=== PATIENT | female | born 1965 | race Caucasian/White ===

== ENCOUNTER 2019-02-26 05:24 | Inpatient (IN) ==
[2019-02-25 10:26] LABS: Basophils % 0.4 % (0.0-0.8); Eosinophils # 0.1 10*3/uL (0.0-0.87); Eosinophils % 1.9 % (0.00-10.9); Hematocrit 42.2 VOL% (35.7-47.0); Hemoglobin 13.7 GM/DL (12.0-16.0); Immature Granulocytes % 0.4 %; Immature Granulocytes Absolute 0.03 #; Lymphocytes # 1.8 10*3/uL (1.4-4.0); Lymphocytes % 26.6 % (21.3-54.2); Mean Corpuscular HGB Conc 32.5 GM/DL (32-36); Mean Corpuscular Volume 87.6 FL (87-102); Mean Platelet Volume 10.9 FL (9.6-12.0); Monocytes % 8.5 % (1.7-12.7); Neutrophils % 62.2 % (38.7-73.9); Platelet Count 196 T/CUMM (130-400); Red Blood Count 4.82 MC/CUMM (3.8-5.5); Red Cell Distribution Width 12.6 % (9.3-17.3); White Blood Count 6.7 T/CUMM (4-12)
[2019-02-25 10:37] LABS: INR 0.9; Partial Thromboplastin Time 27.5 SECS (0-40)
[2019-02-25 10:42] LABS: Apearance,Urine CLEAR (Clear); Bilirubin,Urine Negative (Negative); Blood, Urine Large mg/dL (Negative); Glucose,Urine (UA) 150 mg/dL (Negative); Ketones,Urine Negative (Negative); Nitrite,Urine Negative (Negative); Protein,Urine 30 MG/DL; RBC,Urine 11 /HPF (0-4); Squamous Epithelial Cell,Urine Occasional /HPF (0-10); Urine Color Yellow (Yellow); Urine Specific Gravity 1.014 (1.001-1.035); Urine Urobilinogen < 2.0 EU/DL (0.2-1.0); WBC,Urine 2 /HPF (0-6)
[2019-02-25 10:54] LABS: Calcium 9.6 MG/DL (8.5-10.1); Osmolality,Calculated 285.8 MOS/KG (273-304)
[~2019-02-26 05:24] MED LIST: PAPAVERINE 60 MG/2 ML VIAL ONE; SODIUM CHLORIDE 0.9% 1,000 ML IV PRN; TISSUE ADHESIVE 1 EACH APPLICATOR TOP ONE; VANCOMYCIN 1,000 MG VIAL ONE
[2019-02-26] MEDS ORDERED: LIDOCAINE 1% 5 ML VIAL ONE (06:00)
[2019-02-26] MEDS ORDERED: LORazepam 1 MG TABLET PO ONE (06:00)
[2019-02-26] MEDS ORDERED: SUFentanil 250 MCG/5 ML AMP ONE (06:00)
[2019-02-26] MEDS ORDERED: VECURONIUM 10 MG VIAL IV ONE (06:01)
[2019-02-26] MEDS ORDERED: MIDAZOLAM 10 MG/2 ML VIAL ONE (06:01)
[2019-02-26] MEDS ORDERED: ETOMIDATE 40 MG/20 ML VIAL IV ONE (06:01)
[2019-02-26] MEDS ORDERED: LORazepam 1 MG TABLET ONE (06:10)
[2019-02-26] MEDS ORDERED: SODIUM CHLORIDE 0.9% 1,000 ML IV SCH (06:30)
[2019-02-26] MEDS ORDERED: CEFUROXIME 1,500 MG VIAL ONE (07:07)
[2019-02-26 07:50] LABS: ABG Base Excess -1.7 MMOL/L (-2.5-2.5); ABG Oxygen Saturation 99.9 % (95-100); ABG PCO2 41.1 MM HG (35-48); ABG PH 7.366 (7.35-7.45); ABG TCO2 20.9 MMOL/L (23-27); Glucose Heart Surgery 283 MG/DL (74-106); Hemoglobin Heart Surgery 12.3 G/DL (12.0-16.0); Ionized Calcium Arterial 1.18 MMOL/L (1.21-1.46); PCO2 Patient Temp Arterial 41.1 MMHG; PH Patient Temp Arterial 7.366; Patient Temperature 37 CELCIUS; Potassium Heart/CVR 4.4 MMOL/L (3.5-5.1); Sodium Heart/CVR 135 MMOL/L (135-145)
[2019-02-26 07:53] LABS: Apearance,Urine CLEAR (Clear); Bilirubin,Urine Negative (Negative); Blood, Urine Moderate mg/dL (Negative); Glucose,Urine (UA) 50 mg/dL (Negative); Ketones,Urine Negative (Negative); Nitrite,Urine Negative (Negative); Protein,Urine Negative; RBC,Urine 3 /HPF (0-4); Urine Color Straw (Yellow); Urine Specific Gravity 1.006 (1.001-1.035); Urine Urobilinogen < 2.0 EU/DL (0.2-1.0); WBC,Urine <1 /HPF (0-6)
[2019-02-26] MEDS ORDERED: HEPARIN/NACL 0.9% 2 UNITS/ML 500 ML IV ONE (09:18)
[2019-02-26] MEDS ORDERED: PHENYLEPHRINE DRIP 20 MG/250 ML PREMIX IV ONE (09:18)
[2019-02-26] MEDS ORDERED: NITROGLYCERIN DRIP 50 MG/250 ML BOTTLE IV ONE (09:18)
[2019-02-26] MEDS ORDERED: CALCIUM CHLORIDE 1,000 MG/10 ML SYRINGE IV ONE (09:22)
[2019-02-26] MEDS ORDERED: SODIUM BICARBONATE 50 MEQ/50 ML VIAL IV ONE ×2 (09:22→10:58)
[2019-02-26] MEDS ORDERED: PHENYLEPHRINE DRIP 40 MG/250 ML PREMIX IV ONE (09:22)
[2019-02-26] MEDS ORDERED: POTASSIUM CHLORIDE RIDER 100 ML IV ONE (09:22)
[2019-02-26] MEDS ORDERED: ALBUMIN 5% 12.5 GM/250 ML VIAL IV ONE (09:23)
[2019-02-26 09:32] LABS: Hematocrit Heart Surgery 26.4 PERCENT (37-47); Hemoglobin Heart Surgery 8.5 G/DL (12.0-16.0); PCO2 Patient Temp Venous 36.4 MM HG; PH Patient Temp Venous 7.421; PO2 Patient Temp Venous 36.4 MM HG; Potassium Heart/CVR 5.7 MMOL/L (3.5-5.1); VBG Base Excess -0.4 MEQ/L (0-4); VBG HCO3 23.8 MEQ/L (24-28); VBG Oxygen Saturation 76.8 %; VBG PCO2 40.1 MMHG (41-51); VBG PH 7.392; VBG PO2 41.8 MMHG (17-40)
[2019-02-26 10:03] LABS: Hemoglobin Heart Surgery 9.7 G/DL (12.0-16.0); PCO2 Patient Temp Venous 33.9 MM HG; PH Patient Temp Venous 7.452; PO2 Patient Temp Venous 37.7 MM HG; Potassium Heart/CVR 6.6 MMOL/L (3.5-5.1); VBG Base Excess -0.7 MEQ/L (0-4); VBG HCO3 23.9 MEQ/L (24-28); VBG Oxygen Saturation 81.4 %; VBG PCO2 38.7 MMHG (41-51); VBG PH 7.408; VBG PO2 46.5 MMHG (17-40)
[2019-02-26] MEDS ORDERED: INSULIN REGULAR 100 UNIT/ML ONE (10:22)
[2019-02-26 10:48] LABS: ABG Base Excess -4.5 MMOL/L (-2.5-2.5); ABG HCO3 20.7 MMOL/L (20-26); ABG Oxygen Saturation 98.1 % (95-100); ABG PCO2 44.9 MM HG (35-48); ABG PH 7.297 (7.35-7.45); ABG TCO2 20.1 MMOL/L (23-27); Glucose Heart Surgery 367 MG/DL (74-106); Hematocrit Heart Surgery 31.8 PERCENT (37-47); Hemoglobin Heart Surgery 10.3 G/DL (12.0-16.0); PCO2 Patient Temp Arterial 44.9 MMHG; PH Patient Temp Arterial 7.297; Patient Temperature 37 CELCIUS; Potassium Heart/CVR 4.5 MMOL/L (3.5-5.1); Sodium Heart/CVR 131 MMOL/L (135-145)
[2019-02-26] MEDS ORDERED: MANNITOL 100 GM/500 ML BAG IV ONE (10:57)
[2019-02-26] MEDS ORDERED: DEXTROSE 5% KCL 20 MEQ 20 MEQ/1,000 ML BAG IV ONE (10:58)
[2019-02-26] MEDS ORDERED: MAGNESIUM SULFATE 5 GM/10 ML VIAL IV ONE (10:58)
[2019-02-26] MEDS ORDERED: ALBUMIN 25% 25 GM/100 ML VIAL IV ONE (10:58)
[2019-02-26] MEDS ORDERED: PROTAMINE SULFATE 250 MG/25 ML VIAL IV ONE (10:58)
[2019-02-26] MEDS ORDERED: FUROSEMIDE 20 MG/2 ML VIAL ONE (10:59)
[2019-02-26] MEDS ORDERED: methylPREDNISolone SOD SUC 1,000 MG/8 ML VIAL ONE (10:59)
[2019-02-26] MEDS ORDERED: HEPARIN 10,000 UNIT/10 ML VIAL ONE (10:59)
[2019-02-26] MEDS ORDERED: ACETAMINOPHEN 650 MG SUPP RECTAL PRN (11:34)
[2019-02-26] MEDS ORDERED: MIDAZOLAM 2 MG/2 ML VIAL IV PRN (11:34)
[2019-02-26] MEDS ORDERED: POTASSIUM CHLORIDE RIDER 10 MEQ in PREMIX 1 EACH IV PRN (11:34)
[2019-02-26] MEDS ORDERED: MORPHINE 10 MG/1 ML VIAL IV PRN (11:34)
[2019-02-26] MEDS ORDERED: CALCIUM CHLORIDE 1,000 MG/10 ML SYRINGE IV PRN (11:34)
[2019-02-26] MEDS ORDERED: DEXTROSE 50% 25 GM/50 ML SYRINGE IV PRN ×2 (11:34)
[2019-02-26] MEDS ORDERED: MAGNESIUM SULF RIDER 2 GM in PREMIX 1 EACH IV PRN (11:34)
[2019-02-26] MEDS ORDERED: ALBUMIN 5% 12.5 GM in PREMIX 1 EACH IV PRN (11:34)
[2019-02-26] MEDS ORDERED: CHLORHEXIDINE 4% SOLN 118 ML BOTTLE TOP PRN (11:34)
[2019-02-26] MEDS ORDERED: MAGNESIUM SULF RIDER 4 GM in PREMIX 1 EACH IV PRN (11:34)
[2019-02-26] MEDS: SODIUM CHLORIDE 0.45% 1,000 ML IV SCH ×2 (11:45→12:19)
[2019-02-26 12:08] LABS: ABG Base Excess -3.2 MMOL/L (-2.5-2.5); ABG HCO3 21.7 MMOL/L (20-26); ABG Oxygen Saturation 96.6 % (95-100); ABG PCO2 43.5 MM HG (35-48); ABG PH 7.327 (7.35-7.45); ABG PO2 90.3 MM HG (80-95); ABG TCO2 20.5 MMOL/L (23-27); Glucose Heart Surgery 274 MG/DL (74-106); Hematocrit Heart Surgery 34.9 PERCENT (37-47); Hemoglobin Heart Surgery 11.3 G/DL (12.0-16.0); Potassium Heart/CVR 3.8 MMOL/L (3.5-5.1)
[2019-02-26 12:12] LABS: Basophils % 0.3 % (0.0-0.8); Eosinophils % 0.4 % (0.00-10.9); Hematocrit 33.7 VOL% (35.7-47.0); Hemoglobin 11.1 GM/DL (12.0-16.0); Immature Granulocytes % 0.7 %; Immature Granulocytes Absolute 0.05 #; Lymphocytes # 0.8 10*3/uL (1.4-4.0); Lymphocytes % 12.1 % (21.3-54.2); Mean Corpuscular HGB Conc 32.9 GM/DL (32-36); Mean Corpuscular Volume 87.3 FL (87-102); Mean Platelet Volume 10.9 FL (9.6-12.0); Monocytes % 4.7 % (1.7-12.7); Neutrophils % 81.8 % (38.7-73.9); Platelet Count 163 T/CUMM (130-400); Red Blood Count 3.86 MC/CUMM (3.8-5.5); Red Cell Distribution Width 12.7 % (9.3-17.3)
[2019-02-26 12:21] LABS: Partial Thromboplastin Time 26.4 SECS (0-40)
[2019-02-26] MEDS: POTASSIUM CHLORIDE RIDER 20 MEQ in PREMIX 1 EACH IV PRN ×3 (12:23→18:53)
[2019-02-26 12:41] LABS: Blood Urea Nitrogen 16 MG/DL (7-18); Glucose 253 MG/DL (74-106); Osmolality,Calculated 286.5 MOS/KG (273-304)
[2019-02-26] MEDS: INSULIN REGULAR DRIP 100 ML IV SCH ×2 (12:42→19:09)
[2019-02-26] MEDS: SODIUM CHLORIDE 0.9% 250 ML IV PRN ×2 (12:44→13:00)
[2019-02-26 13:00] LABS: Calcium 8.5 MG/DL (8.5-10.1)
[2019-02-26] MEDS ORDERED: AMINOCAPROIC ACID 5,000 MG/20 ML VIAL ONE (13:02)
[2019-02-26] MEDS: INSULIN REGULAR 100 UNIT/ML IV PRN ×2 (13:58→17:07)
[2019-02-26] MEDS ORDERED: ASPIRIN 300 MG SUPP RECTAL ONE (14:35)
[2019-02-26 16:59] LABS: ABG HCO3 21.1 MMOL/L (20-26); ABG PCO2 39.4 MM HG (35-48); ABG PH 7.343 (7.35-7.45); ABG TCO2 18.9 MMOL/L (23-27); Glucose Heart Surgery 191 MG/DL (74-106); Hematocrit Heart Surgery 38.7 PERCENT (37-47); Hemoglobin Heart Surgery 12.6 G/DL (12.0-16.0); Potassium Heart/CVR 3.4 MMOL/L (3.5-5.1)
[2019-02-26 18:54] LABS: ABG Base Excess -4.3 MMOL/L (-2.5-2.5); ABG HCO3 20.9 MMOL/L (20-26); ABG Oxygen Saturation 99.8 % (95-100); ABG PCO2 27.6 MM HG (35-48); ABG PH 7.435 (7.35-7.45); ABG TCO2 16.1 MMOL/L (23-27); Glucose Heart Surgery 168 MG/DL (74-106); Hematocrit Heart Surgery 41.2 PERCENT (37-47); Hemoglobin Heart Surgery 13.4 G/DL (12.0-16.0); Potassium Heart/CVR 4.6 MMOL/L (3.5-5.1)
[2019-02-26] MEDS: MORPHINE 4 MG/1 ML VIAL IV PRN (18:54)
[2019-02-26] MEDS: ONDANSETRON 4 MG/2 ML VIAL IV PRN (19:24)
[2019-02-26] MEDS: CEFUROXIME INJ 1,500 MG in SYRINGE 1 EACH IV SCH (19:59)
[2019-02-26] MEDS: CHLORHEXIDINE 0.12% ORAL RINSE 60 ML BOTTLE SWISH/SPIT SCH (20:04)
[2019-02-27] MEDS: MORPHINE 4 MG/1 ML VIAL IV PRN ×4 (00:06→14:36)
[2019-02-27] MEDS: SODIUM CHLORIDE 0.45% 1,000 ML IV SCH (01:00)
[2019-02-27 04:31] LABS: Basophils % 0.1 % (0.0-0.8); Hemoglobin 12.5 GM/DL (12.0-16.0); Immature Granulocytes % 0.5 %; Immature Granulocytes Absolute 0.08 #; Lymphocytes # 0.9 10*3/uL (1.4-4.0); Lymphocytes % 5.3 % (21.3-54.2); Mean Corpuscular HGB Conc 32.9 GM/DL (32-36); Mean Corpuscular Volume 87.8 FL (87-102); Mean Platelet Volume 10.9 FL (9.6-12.0); Monocytes % 4.4 % (1.7-12.7); Neutrophils % 89.7 % (38.7-73.9); Platelet Count 219 T/CUMM (130-400); Red Blood Count 4.33 MC/CUMM (3.8-5.5); White Blood Count 15.9 T/CUMM (4-12)
[2019-02-27 04:52] LABS: Calcium 8.4 MG/DL (8.5-10.1); Osmolality,Calculated 279.8 MOS/KG (273-304)
[2019-02-27] MEDS: CEFUROXIME INJ 1,500 MG in SYRINGE 1 EACH IV SCH ×2 (06:36→20:12)
[2019-02-27] MEDS ORDERED: metFORMIN 500 MG TABLET PO SCH (08:00)
[2019-02-27] MEDS ORDERED: FUROSEMIDE 40 MG/4 ML VIAL IV ONE (08:10)
[2019-02-27] MEDS: metFORMIN 500 MG TABLET PO SCH ×2 (09:29→17:15)
[2019-02-27] MEDS: LOSARTAN 25 MG TABLET PO SCH (09:29)
[2019-02-27] MEDS: METOPROLOL TARTRATE 25 MG TABLET PO SCH ×2 (09:29→20:08)
[2019-02-27] MEDS: PANTOPRAZOLE 40 MG VIAL IV SCH (09:30)
[2019-02-27] MEDS: CHLORHEXIDINE 0.12% ORAL RINSE 60 ML BOTTLE SWISH/SPIT SCH ×2 (09:30→20:11)
[2019-02-27] MEDS: CLOPIDOGREL 75 MG TABLET PO SCH (09:43)
[2019-02-27] MEDS ORDERED: ePHEDrine 50 MG/ML AMP ONE (11:31)
[2019-02-27] MEDS ORDERED: HydrOXYzine PAMOATE 25 MG CAPSULE PO PRN (11:33)
[2019-02-27] MEDS: ATORVASTATIN 40 MG TABLET PO SCH ×2 (11:45→20:08)
[2019-02-27] MEDS: FUROSEMIDE 40 MG TABLET PO SCH ×2 (11:45→14:36)
[2019-02-27] MEDS: ONDANSETRON 4 MG/2 ML VIAL IV PRN (12:22)
[2019-02-27] MEDS: INSULIN REGULAR 100 UNIT/ML SUBCUT SCH ×3 (14:35→22:16)
[2019-02-27] MEDS: ASPIRIN EC 325 MG TABLET PO SCH (14:36)
[2019-02-27] MEDS: INSULIN GLARGINE 100 UNIT/ML SUBCUT SCH (17:44)
[2019-02-28] MEDS: MORPHINE 4 MG/1 ML VIAL IV PRN ×2 (02:35→23:16)
[2019-02-28] MEDS: INSULIN REGULAR 100 UNIT/ML SUBCUT SCH ×6 (02:36→23:09)
[2019-02-28 05:07] LABS: Basophils % 0.1 % (0.0-0.8); Eosinophils % 0.1 % (0.00-10.9); Hematocrit 33.9 VOL% (35.7-47.0); Hemoglobin 10.9 GM/DL (12.0-16.0); Immature Granulocytes % 1.2 %; Immature Granulocytes Absolute 0.22 #; Lymphocytes # 1.5 10*3/uL (1.4-4.0); Mean Corpuscular HGB Conc 32.2 GM/DL (32-36); Mean Corpuscular Volume 89.4 FL (87-102); Mean Platelet Volume 10.9 FL (9.6-12.0); Monocytes % 7.3 % (1.7-12.7); Neutrophils % 83.3 % (38.7-73.9); Platelet Count 216 T/CUMM (130-400); Red Blood Count 3.79 MC/CUMM (3.8-5.5); Red Cell Distribution Width 12.9 % (9.3-17.3); White Blood Count 18.2 T/CUMM (4-12)
[2019-02-28 05:27] LABS: Calcium 8.2 MG/DL (8.5-10.1); Osmolality,Calculated 283.8 MOS/KG (273-304)
[2019-02-28] MEDS ORDERED: BISACODYL 5 MG TABLET PO ONE (09:06)
[2019-02-28] MEDS: PANTOPRAZOLE 40 MG VIAL IV SCH (10:23)
[2019-02-28] MEDS: metFORMIN 500 MG TABLET PO SCH ×2 (10:25→16:16)
[2019-02-28] MEDS: ASPIRIN EC 325 MG TABLET PO SCH (10:25)
[2019-02-28] MEDS: METOPROLOL TARTRATE 25 MG TABLET PO SCH ×2 (10:26→20:28)
[2019-02-28] MEDS: LOSARTAN 25 MG TABLET PO SCH (10:26)
[2019-02-28] MEDS: FUROSEMIDE 40 MG TABLET PO SCH (10:26)
[2019-02-28] MEDS: CLOPIDOGREL 75 MG TABLET PO SCH (10:26)
[2019-02-28] MEDS: INSULIN GLARGINE 100 UNIT/ML SUBCUT SCH ×2 (10:28→12:13)
[2019-02-28] MEDS: CHLORHEXIDINE 0.12% ORAL RINSE 60 ML BOTTLE SWISH/SPIT SCH ×2 (10:34→20:29)
[2019-02-28] MEDS: INSULIN LISPRO 100 UNIT/ML SUBCUT SCH ×3 (12:43→20:28)
[2019-02-28] MEDS: SODIUM CHLORIDE 0.45% 1,000 ML IV SCH (13:19)
[2019-02-28] MEDS: ATORVASTATIN 40 MG TABLET PO SCH (20:28)
[2019-03-01] MEDS: INSULIN REGULAR 100 UNIT/ML SUBCUT SCH ×5 (04:21→21:10)
[2019-03-01 05:10] LABS: Basophils % 0.1 % (0.0-0.8); Eosinophils % 0.1 % (0.00-10.9); Hematocrit 29.8 VOL% (35.7-47.0); Hemoglobin 9.9 GM/DL (12.0-16.0); Immature Granulocytes % 0.8 %; Lymphocytes # 1.7 10*3/uL (1.4-4.0); Lymphocytes % 13.4 % (21.3-54.2); Mean Corpuscular HGB Conc 33.2 GM/DL (32-36); Mean Corpuscular Volume 87.4 FL (87-102); Mean Platelet Volume 11.1 FL (9.6-12.0); Monocytes % 7.5 % (1.7-12.7); Neutrophils % 78.1 % (38.7-73.9); Platelet Count 181 T/CUMM (130-400); Red Blood Count 3.41 MC/CUMM (3.8-5.5); Red Cell Distribution Width 12.8 % (9.3-17.3); White Blood Count 12.7 T/CUMM (4-12)
[2019-03-01] MEDS: INSULIN LISPRO 100 UNIT/ML SUBCUT SCH ×4 (08:15→21:36)
[2019-03-01] MEDS: INSULIN GLARGINE 100 UNIT/ML SUBCUT SCH (08:15)
[2019-03-01] MEDS: CLOPIDOGREL 75 MG TABLET PO SCH (08:16)
[2019-03-01] MEDS: ASPIRIN EC 325 MG TABLET PO SCH (08:16)
[2019-03-01] MEDS: METOPROLOL TARTRATE 25 MG TABLET PO SCH ×2 (08:16→23:18)
[2019-03-01] MEDS: metFORMIN 500 MG TABLET PO SCH ×2 (08:16→16:36)
[2019-03-01] MEDS: LOSARTAN 25 MG TABLET PO SCH (08:16)
[2019-03-01] MEDS: FUROSEMIDE 40 MG TABLET PO SCH (08:17)
[2019-03-01] MEDS: PANTOPRAZOLE 40 MG VIAL IV SCH (08:17)
[2019-03-01] MEDS: glyBURIDE 2.5 MG TABLET PO SCH (09:41)
[2019-03-01] MEDS: CHLORHEXIDINE 0.12% ORAL RINSE 60 ML BOTTLE SWISH/SPIT SCH ×2 (10:12→21:36)
[2019-03-01] MEDS: MORPHINE 4 MG/1 ML VIAL IV PRN (12:23)
[2019-03-01] MEDS: ATORVASTATIN 40 MG TABLET PO SCH (21:36)
[2019-03-02] MEDS: INSULIN REGULAR 100 UNIT/ML SUBCUT SCH ×7 (00:55→23:49)
[2019-03-02] MEDS: metFORMIN 500 MG TABLET PO SCH ×2 (08:26→16:21)
[2019-03-02] MEDS: METOPROLOL TARTRATE 25 MG TABLET PO SCH ×2 (08:26→21:03)
[2019-03-02] MEDS: glyBURIDE 2.5 MG TABLET PO SCH (08:26)
[2019-03-02] MEDS: CLOPIDOGREL 75 MG TABLET PO SCH (08:26)
[2019-03-02] MEDS: ASPIRIN EC 325 MG TABLET PO SCH (08:27)
[2019-03-02] MEDS: FUROSEMIDE 40 MG TABLET PO SCH (08:27)
[2019-03-02] MEDS: INSULIN GLARGINE 100 UNIT/ML SUBCUT SCH (08:27)
[2019-03-02] MEDS: LOSARTAN 25 MG TABLET PO SCH (08:27)
[2019-03-02] MEDS: INSULIN LISPRO 100 UNIT/ML SUBCUT SCH ×4 (08:28→21:03)
[2019-03-02] MEDS: PANTOPRAZOLE 40 MG VIAL IV SCH (08:28)
[2019-03-02] MEDS: CHLORHEXIDINE 0.12% ORAL RINSE 60 ML BOTTLE SWISH/SPIT SCH ×2 (08:30→21:03)
[2019-03-02] MEDS: ATORVASTATIN 40 MG TABLET PO SCH (21:03)
[2019-03-02] MEDS: MORPHINE 4 MG/1 ML VIAL IV PRN (21:36)
[2019-03-03] MEDS: INSULIN REGULAR 100 UNIT/ML SUBCUT SCH ×3 (03:42→11:52)
[2019-03-03 06:17] LABS: Calcium 7.9 MG/DL (8.5-10.1); Osmolality,Calculated 280.5 MOS/KG (273-304)
[2019-03-03 06:54] LABS: Basophils % 0.4 % (0.0-0.8); Eosinophils # 0.2 10*3/uL (0.0-0.87); Eosinophils % 2.7 % (0.00-10.9); Hematocrit 31.8 VOL% (35.7-47.0); Hemoglobin 9.8 GM/DL (12.0-16.0); Immature Granulocytes % 1.2 %; Immature Granulocytes Absolute 0.09 #; Lymphocytes # 2.8 10*3/uL (1.4-4.0); Mean Corpuscular HGB Conc 30.8 GM/DL (32-36); Mean Corpuscular Volume 94.9 FL (87-102); Mean Platelet Volume 10.7 FL (9.6-12.0); Monocytes % 8.6 % (1.7-12.7); Neutrophils % 51.1 % (38.7-73.9); Platelet Count 207 T/CUMM (130-400); Red Blood Count 3.35 MC/CUMM (3.8-5.5); Red Cell Distribution Width 12.8 % (9.3-17.3); White Blood Count 7.8 T/CUMM (4-12)
[2019-03-03] MEDS: glyBURIDE 2.5 MG TABLET PO SCH (08:48)
[2019-03-03] MEDS: CLOPIDOGREL 75 MG TABLET PO SCH (08:48)
[2019-03-03] MEDS: metFORMIN 500 MG TABLET PO SCH (08:48)
[2019-03-03] MEDS: METOPROLOL TARTRATE 25 MG TABLET PO SCH (08:48)
[2019-03-03] MEDS: INSULIN GLARGINE 100 UNIT/ML SUBCUT SCH (08:48)
[2019-03-03] MEDS: FUROSEMIDE 40 MG TABLET PO SCH (08:48)
[2019-03-03] MEDS: ASPIRIN EC 325 MG TABLET PO SCH (08:48)
[2019-03-03] MEDS: LOSARTAN 25 MG TABLET PO SCH (08:48)
[2019-03-03] MEDS: INSULIN LISPRO 100 UNIT/ML SUBCUT SCH ×2 (08:49→11:52)
[2019-03-03] MEDS: PANTOPRAZOLE 40 MG VIAL IV SCH (08:49)
[2019-03-03] MEDS: CHLORHEXIDINE 0.12% ORAL RINSE 60 ML BOTTLE SWISH/SPIT SCH (08:51)
[2019-03-03 12:31] VITALS: BP 126/71
[2019-03-04] MEDS ORDERED: LOSARTAN 50 MG TABLET PO SCH (09:00)
== END 2019-03-03 13:00 | disposition home health service (06) | DRG 236 ==
LOC: N.SDSINP 05:24 → N.CVR 11:20 → N.TELES 02-27 11:11
PROVIDERS: ADMIT Thoracic Surgery (Cardiothoracic Vascular Surgery); ATTEND Thoracic Surgery (Cardiothoracic Vascular Surgery)

== ENCOUNTER 2019-05-13 08:48 | Inpatient (IN) ==
[2019-05-13 09:22] LABS: Basophils % 0.3 % (0.0-0.8); Eosinophils # 0.1 10*3/uL (0.0-0.87); Eosinophils % 1.9 % (0.00-10.9); Hematocrit 40.2 VOL% (35.7-47.0); Hemoglobin 12.8 GM/DL (12.0-16.0); Immature Granulocytes % 0.7 %; Immature Granulocytes Absolute 0.04 #; Lymphocytes # 1.8 10*3/uL (1.4-4.0); Lymphocytes % 30.1 % (21.3-54.2); Mean Corpuscular HGB Conc 31.8 GM/DL (32-36); Mean Corpuscular Volume 86.6 FL (87-102); Mean Platelet Volume 10.7 FL (9.6-12.0); Monocytes % 10.9 % (1.7-12.7); Neutrophils % 56.1 % (38.7-73.9); Platelet Count 205 T/CUMM (130-400); Red Blood Count 4.64 MC/CUMM (3.8-5.5); Red Cell Distribution Width 13.4 % (9.3-17.3); White Blood Count 5.9 T/CUMM (4-12)
[2019-05-13 09:32] LABS: INR 0.9; PT Patient Result 9.9 SECS; Partial Thromboplastin Time 25.2 SECS (0-40)
[2019-05-13] MEDS ORDERED: ENOXAPARIN 120 MG/0.8 ML SYRINGE SUBCUT STA (09:54)
[2019-05-13 09:56] LABS: Apearance,Urine CLEAR (Clear); Bacteria,Urine Occasional /HPF (Few); Bilirubin,Urine Negative (Negative); Blood, Urine Moderate mg/dL (Negative); Glucose,Urine (UA) >=500 mg/dL (Negative); Ketones,Urine Negative (Negative); Mucus,Urine Occasional /LPF (Occasional); Nitrite,Urine Negative (Negative); Protein,Urine Negative; RBC,Urine 5 /HPF (0-4); Squamous Epithelial Cell,Urine Occasional /HPF (0-10); Urine Color Straw (Yellow); Urine Specific Gravity 1.017 (1.001-1.035); Urine Urobilinogen < 2.0 EU/DL (0.2-1.0); WBC,Urine 1 /HPF (0-6)
[2019-05-13 09:56] LABS: Albumin 3.7 G/DL (3.4-5.0); Bilirubin,Total 0.6 MG/DL (0.2-1.0); Calcium 9.2 MG/DL (8.5-10.1); Osmolality,Calculated 283.8 MOS/KG (273-304); Total Protein 7.8 G/DL (6.4-8.3)
[2019-05-13] MEDS ORDERED: LACTULOSE 20 GM/30 ML UDCUP PO PRN (10:13)
[2019-05-13] MEDS ORDERED: DOCUSATE SODIUM 100 MG CAPSULE PO PRN (10:13)
[2019-05-13] MEDS ORDERED: MAGNESIUM SULF RIDER 2 GM in PREMIX 1 EACH IV PRN (10:13)
[2019-05-13] MEDS ORDERED: POTASSIUM CHLORIDE 20 MEQ TABLET PO PRN (10:13)
[2019-05-13] MEDS ORDERED: MAGNESIUM SULF RIDER 4 GM in PREMIX 1 EACH IV PRN (10:13)
[2019-05-13] MEDS ORDERED: MORPHINE 4 MG/1 ML VIAL IV PRN (10:13)
[2019-05-13] MEDS ORDERED: ONDANSETRON 4 MG/2 ML VIAL IV PRN (10:13)
[2019-05-13] MEDS ORDERED: PROMETHAZINE 25 MG TABLET PO PRN (10:13)
[2019-05-13] MEDS ORDERED: ZALEPLON 5 MG CAPSULE PO PRN (10:13)
[2019-05-13] MEDS ORDERED: guaiFENesin/DM ER 600-30 MG TABLET PO PRN (10:13)
[2019-05-13] MEDS ORDERED: PANTOPRAZOLE 40 MG TABLET PO ONE (12:20)
[2019-05-13] MEDS ORDERED: HydrOXYzine PAMOATE 25 MG CAPSULE PO PRN (12:31)
[2019-05-13 13:06] LABS: Risk Ratio 3.11; VLDL CHOLESTEROL 41.2 MG/DL
[2019-05-13] MEDS ORDERED: NITROGLYCERIN SL 0.4 MG TABLET SL PRN (14:43)
[2019-05-13 14:51] LABS: Troponin I 0.358 NG/ML (0.00-0.045)
[2019-05-13] MEDS: FUROSEMIDE 40 MG/4 ML VIAL IV SCH (17:05)
[2019-05-13] MEDS: INSULIN REGULAR 100 UNIT/ML SUBCUT SCH ×2 (17:06→22:32)
[2019-05-13] MEDS ORDERED: ATORVASTATIN 40 MG TABLET PO SCH (21:00)
[2019-05-13] MEDS: METOPROLOL TARTRATE 25 MG TABLET PO SCH (22:32)
[2019-05-14 05:04] LABS: Basophils % 0.5 % (0.0-0.8); Eosinophils # 0.1 10*3/uL (0.0-0.87); Eosinophils % 2.1 % (0.00-10.9); Hematocrit 37.9 VOL% (35.7-47.0); Hemoglobin 12.2 GM/DL (12.0-16.0); Immature Granulocytes % 0.4 %; Immature Granulocytes Absolute 0.02 #; Lymphocytes # 2.5 10*3/uL (1.4-4.0); Lymphocytes % 43.3 % (21.3-54.2); Mean Corpuscular HGB Conc 32.2 GM/DL (32-36); Mean Corpuscular Volume 86.3 FL (87-102); Mean Platelet Volume 11.3 FL (9.6-12.0); Monocytes % 10.5 % (1.7-12.7); Neutrophils % 43.2 % (38.7-73.9); Platelet Count 188 T/CUMM (130-400); Red Blood Count 4.39 MC/CUMM (3.8-5.5); Red Cell Distribution Width 13.4 % (9.3-17.3); White Blood Count 5.7 T/CUMM (4-12)
[2019-05-14 05:12] LABS: Calcium 8.7 MG/DL (8.5-10.1); Osmolality,Calculated 282.4 MOS/KG (273-304)
[2019-05-14 05:18] LABS: Troponin I 0.136 NG/ML (0.00-0.045)
[2019-05-14] MEDS ORDERED: ISOSORBIDE MONONITRATE 30 MG TABLET PO SCH (09:00)
[2019-05-14] MEDS ORDERED: ASPIRIN EC 325 MG TABLET PO SCH (09:00)
[2019-05-14] MEDS: METOPROLOL TARTRATE 25 MG TABLET PO SCH ×2 (09:04→22:00)
[2019-05-14] MEDS: FUROSEMIDE 40 MG/4 ML VIAL IV SCH ×2 (09:04→16:47)
[2019-05-14] MEDS: PANTOPRAZOLE 40 MG TABLET PO SCH (09:04)
[2019-05-14] MEDS: ASPIRIN EC 81 MG TABLET PO SCH (09:04)
[2019-05-14] MEDS: LOSARTAN 50 MG TABLET PO SCH (09:04)
[2019-05-14] MEDS: INSULIN REGULAR 100 UNIT/ML SUBCUT SCH ×4 (09:05→22:00)
[2019-05-14] MEDS: SODIUM CHLORIDE 0.9% 1,000 ML IV SCH ×2 (09:10→16:31)
[2019-05-14] MEDS: CLOPIDOGREL 75 MG TABLET PO SCH (09:52)
[2019-05-14] MEDS ORDERED: diphenhydrAMINE CAP 25 MG CAPSULE PO ONE (12:30)
[2019-05-14] MEDS ORDERED: DIAZEPAM 5 MG TABLET PO ONE (12:30)
[2019-05-14] MEDS ORDERED: HEPARIN/NACL 0.9% 2 UNITS/ML 1,000 ML IV ONE (13:17)
[2019-05-14] MEDS ORDERED: LIDOCAINE 1% 20 ML VIAL ONE (13:38)
[2019-05-14] MEDS ORDERED: MIDAZOLAM 2 MG/2 ML VIAL ONE ×3 (13:38→14:21)
[2019-05-14] MEDS ORDERED: NITROGLYCERIN DRIP 50 MG/250 ML BOTTLE IV ONE (13:38)
[2019-05-14] MEDS ORDERED: fentaNYL 100 MCG/2 ML VIAL ONE (13:39)
[2019-05-14] MEDS ORDERED: VERAPAMIL 5 MG/2 ML VIAL ONE (13:39)
[2019-05-14] MEDS ORDERED: diphenhydrAMINE 50 MG/1 ML VIAL ONE (13:49)
[2019-05-14] MEDS ORDERED: ENOXAPARIN 60 MG/0.6 ML SYRINGE ONE (13:54)
[2019-05-14] MEDS ORDERED: HEPARIN/NACL 0.9% 2 UNITS/ML 500 ML IV ONE (14:29)
[2019-05-14] MEDS ORDERED: ACETAMINOPHEN 325 MG TABLET PO PRN (14:30)
[2019-05-14 15:33] LABS: Calcium 8.4 MG/DL (8.5-10.1); Osmolality,Calculated 281.4 MOS/KG (273-304)
[2019-05-14] MEDS ORDERED: RANOLAZINE 500 MG TABLET PO SCH (21:00)
[2019-05-14] MEDS: ATORVASTATIN 80 MG TABLET PO SCH (22:00)
[2019-05-15] MEDS ORDERED: diphenhydrAMINE 50 MG/1 ML VIAL IV ONE (00:38)
[2019-05-15] MEDS: SODIUM CHLORIDE 0.9% 1,000 ML IV SCH ×3 (00:47→16:59)
[2019-05-15] MEDS ORDERED: methylPREDNISolone SOD SUC 125 MG/2 ML VIAL IV ONE (06:48)
[2019-05-15 07:22] LABS: Basophils % 0.1 % (0.0-0.8); Eosinophils # 0.1 10*3/uL (0.0-0.87); Eosinophils % 1.5 % (0.00-10.9); Hematocrit 40.8 VOL% (35.7-47.0); Immature Granulocytes % 0.4 %; Immature Granulocytes Absolute 0.03 #; Lymphocytes # 1.4 10*3/uL (1.4-4.0); Lymphocytes % 20.7 % (21.3-54.2); Mean Corpuscular HGB Conc 31.9 GM/DL (32-36); Mean Platelet Volume 10.8 FL (9.6-12.0); Monocytes % 5.9 % (1.7-12.7); Neutrophils % 71.4 % (38.7-73.9); Platelet Count 222 T/CUMM (130-400); Red Blood Count 4.69 MC/CUMM (3.8-5.5); Red Cell Distribution Width 13.7 % (9.3-17.3); White Blood Count 6.7 T/CUMM (4-12)
[2019-05-15] MEDS: INSULIN REGULAR 100 UNIT/ML SUBCUT SCH ×4 (08:04→21:24)
[2019-05-15] MEDS: LOSARTAN 50 MG TABLET PO SCH (08:41)
[2019-05-15] MEDS: ISOSORBIDE MONONITRATE 60 MG TABLET PO SCH (08:41)
[2019-05-15] MEDS: ASPIRIN EC 81 MG TABLET PO SCH (08:42)
[2019-05-15] MEDS: predniSONE 20 MG TABLET PO SCH (08:42)
[2019-05-15] MEDS: PANTOPRAZOLE 40 MG TABLET PO SCH (08:42)
[2019-05-15] MEDS: CLOPIDOGREL 75 MG TABLET PO SCH (08:42)
[2019-05-15] MEDS: FAMOTIDINE 20 MG TABLET PO SCH ×2 (08:42→21:25)
[2019-05-15] MEDS: diphenhydrAMINE CAP 25 MG CAPSULE PO PRN ×2 (08:42→14:55)
[2019-05-15] MEDS: METOPROLOL TARTRATE 25 MG TABLET PO SCH ×2 (08:42→21:24)
[2019-05-15] MEDS: EMPAGLIFLOZIN METFORMIN PO SCH ×2 (10:54→21:28)
[2019-05-15] MEDS ORDERED: diphenhydrAMINE CAP 25 MG CAPSULE PO ONE (18:40)
[2019-05-15] MEDS ORDERED: predniSONE 20 MG TABLET PO ONE (21:04)
[2019-05-15] MEDS: ATORVASTATIN 80 MG TABLET PO SCH (21:24)
[2019-05-16] MEDS: diphenhydrAMINE CAP 25 MG CAPSULE PO PRN ×2 (06:20→12:08)
[2019-05-16] MEDS: EMPAGLIFLOZIN METFORMIN PO SCH (08:17)
[2019-05-16] MEDS: ISOSORBIDE MONONITRATE 60 MG TABLET PO SCH (08:18)
[2019-05-16] MEDS: ASPIRIN EC 81 MG TABLET PO SCH (08:18)
[2019-05-16] MEDS: predniSONE 20 MG TABLET PO SCH (08:18)
[2019-05-16] MEDS: METOPROLOL TARTRATE 25 MG TABLET PO SCH (08:18)
[2019-05-16] MEDS: CLOPIDOGREL 75 MG TABLET PO SCH (08:18)
[2019-05-16] MEDS: LOSARTAN 50 MG TABLET PO SCH (08:18)
[2019-05-16] MEDS: PANTOPRAZOLE 40 MG TABLET PO SCH (08:18)
[2019-05-16] MEDS: FAMOTIDINE 20 MG TABLET PO SCH (08:18)
[2019-05-16] MEDS: INSULIN REGULAR 100 UNIT/ML SUBCUT SCH ×2 (08:30→12:02)
[2019-05-16 11:34] VITALS: BP 133/73
[2019-05-16] MEDS ORDERED: SEMAGLUTIDE 0.25 MG SUBCUT SCH (12:31)
== END 2019-05-16 13:31 | disposition home or self-care (01) | DRG 607 ==
LOC: EDBD → EDUNIT# → N.EDINP 08:48 → N.ED 08:48 → N.TELEN 12:59
PROVIDERS: ADMIT Internal Medicine Cardiovascular Disease; ATTEND Internal Medicine Cardiovascular Disease